=== PATIENT | female | born 1945 | race Caucasian/White ===

== ENCOUNTER → 2018-02-15 15:43 | Outpatient (CLI) | payer MEDICARE, OTHER, SELFPAY ==
[2018-02-08 13:29] LABS: BUN 24 mg/dL (7-18); Creatinine, Serum 0.88 mg/dL (0.55-1.02); EST Glomerular Filtration Rate 68 mL/min (>60); Est Glom Filt Rate - Afr Amer 82 mL/min (>60)
--- NOTE | 2018-02-15 15:47 | CT_ITS ---
STUDY: CT CERVICAL SPINE WITHOUT CONTRAST REASON FOR EXAM: Female, 72 years old. Right arm dysfunction, cervical radiculopathy, 2009 spinal fusion. RADIATION DOSAGE (If Supplied By Facility): CTDIvol = ( 23.77 ) mGy, DLP = ( 505.84 ) mGycm TECHNIQUE: High resolution transaxial imaging was performed without contrast material. Sagittal and coronal images were reconstructed. Individualized dose optimization techniques were used for this CT. COMPARISON: None FINDINGS: Spurring along the right inferior clivus.. Degenerative changes of the left mass There are degenerative changes of the anterior atlantoaxial articulation. Normal odontoid process. Status post anterior fusion C5 and C6, C6 and C7 without visualized disc spacers. There is straightening of the normal cervical lordosis. Normal vertebral bodies and posterior osseous elements. C2-3: Normal endplates. Mild decreased disc height and posterior bulging. Mild uncovertebral and moderate right facet arthropathy. Normal central canal and intervertebral neuroforamina. C3-4: There is sclerosis of the endplate, loss of the disk height, arthropathy of the bilateral uncovertebral and apophyseal joints. There is normal spinal canal. There is moderate to severe left, severe right narrowing of the neuroforamina. C4-5: There is sclerosis of the endplate, loss of the disk height, arthropathy of the bilateral uncovertebral and left apophyseal joints. There is normal spinal canal. There is moderate narrowing of the left neuroforamina. C5-6: Sclerosed endplates with posterior spurring. Mild spinal canal and neural foraminal narrowing. C6-7: Fusion of disc space. C7-T1: Mild facet arthropathy. There is no demonstrated pneumothorax. CT/Spine Cervical without Contras IMPRESSION: Multilevel degenerative changes, with mild spinal canal stenosis and severe foraminal stenosis C3-4, moderate left C4-5 neural foraminal narrowing. There is straightening of the normal lordotic curve, a nonspecific finding, which may be due to positioning or which might be due to muscle spasm. There is no acute displaced fracture or dislocation. Postsurgical changes as above. Electronically Signed: Vonda Celaya MD at 7:03 EDT , Service support ,
--- NOTE | 2018-02-15 16:08 | MRI_ITS ---
MR Spine Cervical WO/W Contrast INDICATION: Cervical radiculopathy rt shoulder. 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 COMPARISON: CT cervical spine from earlier the same day (images only) TECHNIQUE: Multiplanar multisequence MRI examination of the cervical spine without and with IV contrast. 9 mL of gadavist were given intravenously. FINDINGS: There are postsurgical changes from C4-5 and C5-6 anterior fusion with screw and plate fixation. No evidence of disc spacers. There appears to be interbody fusion at C6-7. Uncovertebral joint hypertrophy is noted at C5-6 with mild neuroforaminal narrowing bilaterally. There is no evidence of significant osteophyte formation or neuroforaminal narrowing at C6-7. There is normal cervical lordosis. There is normal alignment at the atlantoaxial articulation, craniocervical junction, and at the facet joints. C2-3 level demonstrates right predominant facet arthritic changes, no significant disc bulging, spinal canal or neuroforaminal stenosis. C3-4 level demonstrates decrease in disc height and facet arthritic changes. Circumferential disc osteophytes and uncovertebral joint hypertrophy is noted. Combination of the findings result in severe bilateral neuroforaminal stenosis. Spinal canal is mildly narrowed. C4-5 level demonstrates mild facet arthritic changes and minimal disc bulging and left-sided uncovertebral joint hypertrophy resulting in left neuroforaminal stenosis. Spinal canal and right neuroforamina do not appear significantly narrowed. C5-6 mild spinal canal and bilateral neuroforaminal narrowing as detailed above. C6-7 no significant spinal canal or neuroforaminal narrowing. C7-T1 level demonstrates no significant disc bulging, spinal canal or neuroforaminal stenosis. After contrast administration, there is no abnormal enhancement identified. There is no evidence of bone marrow edema or abnormal fluid collection. MRI/Spine Cervical W/WO Contrast IMPRESSION: Post surgical changes from C5-6 and C6-7 discectomy and fusion as detailed above. Degenerative changes above the level of the fusion result in mild spinal canal narrowing and severe bilateral neuroforaminal stenosis at C3-4 and minimal spinal canal and moderate to severe left neuroforaminal stenosis at C4-5. at 2056 Reported and signed by: Sue Burgos MD Electronically Signed: Sue Burgos MD at 20:54 EDT Tel , Service support ,
== END ==
PROVIDERS: Family Provider Internal Medicine; PCP Internal Medicine
DX: M54.12 Radiculopathy, cervical region (principal); M48.02 Spinal stenosis, cervical region
CPT/HCPCS: 36415; 72125; 72156; 82565; 84520; A9585

== ENCOUNTER → 2018-03-15 10:19 | Outpatient (CLI) | payer MEDICARE, OTHER, SELFPAY ==
--- NOTE | 2018-03-15 10:45 | MRI_ITS ---
STUDY: MRI LUMBAR SPINE WITHOUT CONTRAST REASON FOR EXAM: Female, 72 years old. Low back pain. TECHNIQUE: Standardized fat and water weighted pulse sequences were obtained in the sagittal and axial planes. Several images are limited by patient motion. COMPARISON: Radiographs of the lumbar spine dated October 26, 2015. FINDINGS: T12-L1: Normal endplates. Normal disc height, signal and morphology. Normal bilateral facet joints. Normal central canal and bilateral lateral recesses. Normal bilateral intervertebral neural foramina. Normal lumbar lordosis. There is no substantial scoliosis. Normal conus medullaris that terminates at the L1 level. There appears to mild compression of the T12 vertebral body probably related to mild old compression fracture. L1-2: There is an annular disc bulge and osteophyte complex. There is moderate degenerative arthropathy of the right-sided facet joint. There is mild central acquired canal stenosis. Neuroforamina are narrowed without evidence for nerve impingement. L2-3: There is severe narrowing of the disc. There is abnormal signal at the endplates suggesting sequela of chronic Modic changes. Neuroforamina are bilaterally narrowed without evidence for nerve impingement. L3-4: There is narrowing of the disc with irregular endplates. There is an annular disc bulge and osteophyte complex. The neural foramina are severely narrowed with potential impingement of the L3 nerve roots at the neural foramina. There is no significant central acquired canal stenosis. L4-5: Patient has had surgical fusion at this level. There is annular disc bulge and osteophyte complex. Neural foramina are narrowed without evidence for nerve impingement. There is no significant central acquired canal stenosis. L5-S1: There is mild annular disk bulge and osteophyte complex. There is mild degenerative arthropathy of the facet joints. Bilateral neuroforamina are narrowed without MR evidence for nerve impingement. There is no significant central canal stenosis. Normal visualized sacral ala. There is moderate paraspinal muscular atrophy posterior to the sacrum. The paraspinal soft tissues are otherwise within normal limits. MRI/Spine Lumbar (Routine) IMPRESSION: 1. Status post surgical fusion at L4-L5. 2. Multilevel degenerative disc disease and degenerative arthropathy of the lumbar spine with acquired canal stenosis, neural foraminal narrowing and potential nerve impingement, as described. Electronically Signed: Rina Asencio MD at 11:39 EDT , Service support ,
== END ==
PROVIDERS: Family Provider Internal Medicine; PCP Internal Medicine
DX: M54.16 Radiculopathy, lumbar region (principal)
CPT/HCPCS: 72148

== ENCOUNTER 2018-07-19 11:30 | Outpatient (RCR) | payer MEDICARE, OTHER, SELFPAY ==
--- NOTE | 2018-05-30 10:59 | HP.PTEVAL_ITS ---
Patient's Visit Information DESTINY DUBOSE is a 72 year old F referred to Physical Therapy by SHIRAZ SKELTON with a diagnosis of R shoulder RCT/arthropathy. Date of Evaluation: 05/30/18 Physical Therapist: GAGE AndersT, OC - Visit Plan Frequency: 2x /Week Duration: 4-6 Weeks Plan: 2x/week for 4-6 for pool ex. 1. emphasize right shoulder strength and postural strength and ROM to full flexion as able. 2. Also teach general core and LE strength and progress all to I for community pool. - Subjective Subjective: R shoulder is shot from a fall 20 years ago. It all of a sudden started hurting last winter aching and getting slowly worse until could not lift arm in November. Saw Neurosurgeon in December due to previous neck problems. Then sent to ortho and has OA but socket is in place and then MRI which showed no RC present according to patient. Got cortisone shot which she had a bad reaction to but it did help the severity of the pain. May need rev TSA but doesn't want that if can avoid it. Neck seems OK but doctor told her she would need a fusion if shoulder wasn't hurting. Lifting shoulder hurts 7/10, Hurts to put it behind her to put on belt etc. Sleeping is waking up at night with pain, tries to sleep on her back. Normally rolls to R. 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 Basic ADLs are painful but can do most of them, hard to push vacuum with R arm and cutting things is difficult, she is R handed. Also has CTS on R. Spends day reading alot, shoulder has minimized garden work as she cannot pull weeds. Would be swimming if it wasn't for shoulder for exercise. - Pain R shoulder Pain Intensity (Out of 10): 2 Pain Intensity Range: 1, 7 Comment: feels like rubber band around bicep. - Objective Walks I into and out of PT, trasnfers I with UE. To and fro supine I. L UE AROM WFL and 4/5 strength. R UE AROM elbow and wrist WFL, shoulder is full PROM but pain over 130 elevation, AROM is painful at and above 90 in flexion and abduction. IR is painful at end range and to PSIS. Ext rot is full. Strength in shoulder R is 3+ ER and IR with some mild discomfort. flexion and abduction 3/5 and painful. reflexes 1/3 in bi and tri B. C/S AROM is limited in all directions and without increased pain today. + shoulder scouring , - ext rotation lag test, - HK and neer. - Goals Goal 1:: Shoulder ROM to 140 without pain and to spine IR without pain to improve dressing. Goal Time Frame: 4-6 Weeks Goal 2:: Sleep without waking due to pain 1 week. Goal Time Frame: 4-6 Weeks Goal 3:: Work at desk without noticing increased pain. Goal Time Frame: 4-6 Weeks Goal 4:: I approp Pool ex to continue I to minimize future problems. Goal Time Frame: 4-6 Weeks - Rehabilitation Potential Physical Therapy Diagnosis: R shouder arthropathy - Anticipated Interventions Patient/Client Instruction: Educate patient on: Condition, Plan of Care For the Purpose of:: To decrease pain, To improve performance and independence with ADL's Therapeutic Exercise to Include: Strength training, Endurance training, In an aquatic setting, Passive ROM, Active ROM Comment: general strength progression in pool For the Purpose of:: To decrease pain, To increase ROM, To improve ability of physical actions for home/community/work/leisure, To improve gait and locomotor functions Thank you for the opportunity to evaluate your patient. For Medicare and Medicare HMO plans, please review the plan of care and approve it. It will need to be FAXED BACK to us at [phone] for Medicare purposes. Please let me know if there are questions or concerns regarding this plan of care. Physician Signature: Date:
--- NOTE | 2018-06-27 12:04 | HP.PTREVAL_ITS ---
SHIRAZ GOLDSTEIN, It has been my pleasure to treat DESTINY DUBOSE over the last 8 visits for R shoulder RCT/arthropathy. Please see the progress note below for an update on the physical therapy plan of care! Subjective: Feels stronger. Two side effects as carpal tunnel is worse though so Merry changed to glove which is better. Sciatica is also worse. Did side glides whcih helps. Shoulder is stronger and improved function. Has more ROM and feels stronger. Has made some lifestyle modifications. Plan now is to use the [facility]. Feels like she can be I in the pool now. Will add her own water aerobics to that. Will see Dr. Goldstein in July. May get another injection. Does wake up at night if on Right side. Work is better but transfer from task to task can still cause pain, worse after work. Objective/Function: Full AROM but pain at 135 degrees elevation and end range of IR. Strength is 4- flexion adn abd and 4 IR/ER R shoulder and 4+ bi and tri. Moving it fairly well today. Still appropriate for progression to light land based ex toward same goals and fair prognosis. Plan Plan: 2x/week for 3-4 weeks to work on gentle RC strength, postural strength and progression to I. Also monitor pool ex which pt will do I. Goals Goal 1:: Shoulder ROM to 140 without pain and to spine IR without pain to improve dressing. Goal Time Frame: 4-6 Weeks Goal Progress: Progressing Goal 2:: Sleep without waking due to pain 1 week. Goal Time Frame: 4-6 Weeks Goal Progress: Progressing Goal 3:: Work at desk without noticing increased pain. Goal Time Frame: 4-6 Weeks Goal Progress: Not Progressing Goal 4:: I approp Pool ex to continue I to minimize future problems. Goal Time Frame: 4-6 Weeks Goal Progress: Goal Met Goal 5:: I HEP land based RC strength and shoulder ROM ex Goal Time Frame: 2-4 Weeks Goal Progress: NEW GOAL Anticipated Interventions Patient/Client Instruction: Educate patient on: Condition, Plan of Care For the Purpose of:: To decrease pain, To improve performance and independence with ADL's Therapeutic Exercise to Include: Strength training, Endurance training, In an aquatic setting, Passive ROM, Active ROM Comment: general strength progression in pool For the Purpose of:: To decrease pain, To increase ROM, To improve ability of physical actions for home/community/work/leisure, To improve gait and locomotor functions Please do not hesitate to contact me at [phone] by phone or Fax: if you have questions or concerns regarding this new plan of care! Sincerely, Ralph Kolb, DPT, OC
--- NOTE | 2018-07-19 12:21 | HP.PTDCSUM_ITS ---
HP - PT D/C Summary It has been my pleasure to treat DESTINY DUBOSE under orders from SHIRAZ SKELTON, for the diagnosis of R shoulder RCT/arthropathy for a total of 12 visit(s). Discharge Date: 07/19/18 Please see the following information for a summary of their discharge status. - Subjective Subjective: LB is worse than shoulder. Back progressively worsening. Jose giles pain specialist. Jose giles shoulder surgeon on 08/08. Does not want injection but may try acupuncture. Shoulder is better. Constant pain is gone. Has nagging low grade achy. Rated at 3/10 Worse with lifting. HEP includes supine movements and stick are helping. Hasn't been getting back to pool. Time slots are rough at [employer] [facility] [employer]. Will get in today. - Pain R shoulder Pain Intensity (Out of 10): 2 Lumbar Spine Pain Intensity (Out of 10): 0 RLE Pain Intensity (Out of 10): 4 - Overall Improvement % Improvement: 40 - Objective Objective/Function: Full functional R shoulder elevation but slow and hesitant. Weak in rotations. LB AROM is good without pain today but pain in leg and feels weak generally in R LE. - Goals Goal 1:: Shoulder ROM to 140 without pain and to spine IR without pain to improve dressing. Goal Progress: supine Goal 2:: Sleep without waking due to pain 1 week. Goal Progress: Goal Met, with meds Goal 3:: Work at desk without noticing increased pain. Goal Progress: Progressing Goal 4:: I approp Pool ex to continue I to minimize future problems. Goal Progress: Goal Met Goal 5:: I HEP land based RC strength and shoulder ROM ex Goal Progress: Goal Met - Plan Plan: D/C to HEp and to doctor end of month. - D/C Information Discharge Comments: Shoulder better, back still problematic. Will f/u with pain doctor and ortho at end of month. Will continue pool and HEP in meantime. If there are questions or concerns regarding this patient's physical therapy, please feel free to call me at [phone]. Thank you for the referral of this patient. Sincerely, Ralph Kolb, DPT, OC
== END 2018-07-19 19:00 | disposition home or self-care (01) ==
LOC: PT 11:30
PROVIDERS: Family Provider Internal Medicine; PCP Internal Medicine
DX: M75.101 Unspecified rotator cuff tear or rupture of right shoulder, not specified as traumatic (principal); M12.811 Other specific arthropathies, not elsewhere classified, right shoulder
CPT/HCPCS: 97110; 97113; 97162; 97530

== ENCOUNTER 2022-06-23 13:30 | Outpatient (RCR) | payer MEDICARE, SELFPAY ==
--- NOTE | 2022-06-05 13:43 | HP.PTEVAL_ITS ---
Patient's Visit Information DESTINY DUBOSE is a 76 year old F referred to Physical Therapy by Dr. Elvis Viveros MD with a diagnosis of vertigo. Date of Evaluation: 06/05/22 Physical Therapist: Ralph Kolb DPT, OCS, CSCS - Visit Plan Frequency: 1-2x /Week Duration: 2-4 Weeks Plan: 1-2x/week x 2-4 weeks as needed for positional and balance checks - Subjective Has some vertigo. Spinning is when she rolls over for couple seconds. Also with bending over. Always feel imbalanced when on feet. been like this worsening for a couple years. Uses cane to get around. Fell one time several months ago. Sleep is OK. Basic ADLs, all are done I, projects like cooking can be confusing early on and this can create dizzyness. Sometimes has to stop and lie down. No regular ex. Hobbies none. 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 - Objective Walks i with cane slow but steady. Trasnfers I, steps with railing I. Cervical aROM mod limited and hesitant to look up. + R HD for up torsional nystagmus of 15 second duration and dizzy, gets nauseated and sweaty. Treted with Renuka and would not try HD again, ready to go. - Balance/Special Test Scores Functional Gait Assessment Score: 23 % Disability: 23.3400 Dizziness Score: 84 - Goals Goal 1:: abolish vertigo Goal Time Frame: 2-4 Weeks Goal 2:: 25/30 FGA to limit fall risk Goal Time Frame: 2-4 Weeks Goal 3:: Feel 100% better with activities and not need to rest due to vertigo Goal Time Frame: 2-4 Weeks Goal 4:: <30 DHI Goal Time Frame: 2-4 Weeks - Rehabilitation Potential Physical Therapy Diagnosis: BPPV Rehabilitation Potential: Good - Anticipated Interventions Patient/Client Instruction: Educate patient on: Condition, Plan of Care For the Purpose of:: To increase tolerance to activity/condition/position, To improve balance Therapeutic Exercise to Include: Balance training Comment: positional For the Purpose of:: To increase tolerance to activity/condition/position, To improve balance Thank you for the opportunity to evaluate your patient. For Medicare and Medicare HMO plans, please review the plan of care and approve it. It will need to be FAXED BACK to us at [phone] for Medicare purposes. For Medicare only, by signing this I certify the plan of care. Please let me know if there are questions or concerns regarding this plan of care. Physician Signature: Date:
--- NOTE | 2022-08-23 07:54 | HP.PT.NRP ---
DESTINY DUBOSE was seen in my office for initial evaluation on 06/05/22. The following Plan of Care was established for this patient: Initial Frequency: 1-2x /Week Initial Duration: 2-4 Weeks Patient/Client Instruction: Educate patient on: Condition, Plan of Care For the Purpose of:: To increase tolerance to activity/condition/position, To improve balance Therapeutic Exercise to Include: Balance training For the Purpose of:: To increase tolerance to activity/condition/position, To improve balance This patient was last seen in our office 06/23/22. Pertinent comments regarding their Physical therapy will appear below: Pt seen 4 visits of vertigo treatment and was 95% better. She was to f/u 3 weeks later but did not schedule or attend. I will discontinue at this point. At this point I will be discontinuing this patient from physical therapy. I would be happy to see this patient again in the future if found appropriate by the physician. Thank you! Ralph Kolb, DPT, OCS, CSCS Balance/Gait/Functional tests - Balance/Special Test Scores Functional Gait Assessment Score: 27 % Disability: 10.0000 Dizziness Score: 58
== END 2022-06-23 19:00 | disposition home or self-care (01) ==
LOC: PT 13:30
PROVIDERS: PCP Internal Medicine; Referring Provider Internal Medicine; Visit Provider Internal Medicine
DX: R42 Dizziness and giddiness (principal)
CPT/HCPCS: 97161; 97530